=== PATIENT | female | born 1960 | race Caucasian/White ===

== ENCOUNTER 2020-07-24 13:11 | Emergency (ER) | payer MEDICARE, MEDICAID ==
[~2020-07-24] VITALS: Ht 162.6 cm; Wt 59.0 kg
[2020-07-24 13:37] LABS: BASOPHILS # (AUTO) 0.1 X10'3 (0-0.2); BASOPHILS % (AUTO) 0.7 % (0-1); EOSINOPHILS # (AUTO) 0.1 X10'3 (0-0.9); EOSINOPHILS % (AUTO) 1.3 % (0-6); HEMATOCRIT 35.9 % (35.0-45.0); HEMOGLOBIN 12.2 g/dl (12.0-16.0); LYMPHOCYTES % (AUTO) 27.5 % (21-51); MEAN CORPUSCULAR HEMOGLOBIN 32.1 PG (27.0-31.0); MEAN CORPUSCULAR HGB CONC 34.1 g/dL (33.0-36.5); MEAN CORPUSCULAR VOLUME 94.2 FL (78-98); MEAN PLATELET VOLUME 7.6 FL (7.4-10.4); MONOCYTES # (AUTO) 0.6 X10'3 (0-0.9); MONOCYTES % (AUTO) 8.2 % (2-12); NEUTROPHILS # (AUTO) 4.4 X10'3 (1.8-7.7); NEUTROPHILS % (AUTO) 62.3 % (42-75); PLATELET COUNT 285 X10'3 (140-440); RED BLOOD COUNT 3.81 X10'6 (4.20-5.60); RED CELL DISTRIBUTION WIDTH 12.9 % (11.5-14.5); WHITE BLOOD COUNT 7.1 X10'3 (4.5-11.0)
[2020-07-24 14:01] LABS: ALANINE AMINOTRANSFERASE 28 U/L (12-78); ALBUMIN 4.3 G/DL (3.4-5.0); ALBUMIN/GLOBULIN RATIO 1.4 (1.1-1.5); ALKALINE PHOSPHATASE 65 IU/L (46-116); ASPARTATE AMINO TRANSFERASE 18 U/L (10-37); BILIRUBIN,TOTAL 0.3 MG/DL (0.1-1.0); BLOOD UREA NITROGEN 10 MG/DL (7-18); BUN/CREATININE RATIO 9.5 (6.6-38.0); CALCIUM 9.5 MG/DL (8.5-10.1); CREATININE 1.05 MG/DL (0.40-0.90); GLUCOSE 121 MG/DL (70-104); TOTAL CARBON DIOXIDE 27.8 MMOL/L (24-32); TOTAL PROTEIN 7.4 G/DL (6.4-8.2); eGFR 54 ML/MIN
[2020-07-24 14:06] LABS: ANION GAP 8 (8-16); CHLORIDE 99 MMOL/L (99-107); POTASSIUM 4.1 MMOL/L (3.5-5.1); SODIUM 135 MMOL/L (135-145)
[2020-07-24 15:29] VITALS: BP 122/75
== END 2020-07-24 15:25 | disposition home or self-care (01) ==
LOC: ER 13:12
DX: I95.1 Orthostatic hypotension (principal); R42 Dizziness and giddiness; Z88.8 Allergy status to other drugs, medicaments and biological substances
CPT/HCPCS: 36415; 71045; 80053; 83880; 84484; 85025; 93005; 99285

== ENCOUNTER 2020-08-06 00:21 | Emergency (ER) | payer MEDICARE, MEDICAID ==
[~2020-08-06] VITALS: Ht 162.6 cm; Wt 59.1 kg
[2020-08-06] MEDS ORDERED: diphenhydrAMINE 25mg capsule PO ONE (00:50)
[2020-08-06] MEDS ORDERED: LORazepam 1 MG tablet PO ONE (00:50)
[2020-08-06 01:45] VITALS: BP 121/57
== END 2020-08-06 01:46 | disposition home or self-care (01) ==
LOC: ER 00:22
DX: G47.00 Insomnia, unspecified (principal); F41.9 Anxiety disorder, unspecified; F31.9 Bipolar disorder, unspecified; Z79.2 Long term (current) use of antibiotics
CPT/HCPCS: 99283; Q0163

== ENCOUNTER 2021-01-19 12:09 | Emergency (ER) | payer MEDICAID, MEDICARE ==
[~2021-01-19] VITALS: Ht 162.6 cm; Wt 55.6 kg
[2021-01-19 12:15] VITALS: BP 111/65
[2021-01-19] MEDS ORDERED: CLE150C PO (13:18)
[2021-01-19] MEDS ORDERED: IBUP-1984 PO (13:18)
== END 2021-01-19 13:33 | disposition home or self-care (01) ==
LOC: ER 12:09
DX: K04.7 Periapical abscess without sinus (principal); J45.909 Unspecified asthma, uncomplicated; F31.9 Bipolar disorder, unspecified; Z88.1 Allergy status to other antibiotic agents; Z79.899 Other long term (current) drug therapy
CPT/HCPCS: 99283

== ENCOUNTER 2021-01-23 12:52 | Emergency (ER) | payer MEDICARE ==
[~2021-01-23] VITALS: Ht 162.6 cm; Wt 58.2 kg
[~2021-01-23 12:52] MED LIST: CLE150C PO; IBUP-1984 PO
[2021-01-23 13:09] VITALS: BP 123/61
[2021-01-23] MEDS ORDERED: ALBU8HFA PO (13:21)
[2021-01-23] MEDS ORDERED: AZIT-72 PO (13:21)
[2021-01-23] MEDS ORDERED: BENZ-16 PO (13:22)
--- NOTE | 2021-01-23 13:57 | NUR ---
PT READY FOR DC, BUT STATES SHE CAN'T TAKE ZITHROMAX. PROVIDER NOTIFIED, AWAITING NEW RX FOR HOME
[2021-01-23] MEDS ORDERED: DOXY100C76 PO (14:01)
== END 2021-01-23 14:06 | disposition home or self-care (01) ==
LOC: ER 12:52
DX: J20.9 Acute bronchitis, unspecified (principal); F17.210 Nicotine dependence, cigarettes, uncomplicated; J45.909 Unspecified asthma, uncomplicated; F31.9 Bipolar disorder, unspecified; Z88.1 Allergy status to other antibiotic agents; Z79.899 Other long term (current) drug therapy
CPT/HCPCS: 99283

== ENCOUNTER 2021-01-29 09:59 | Emergency (ER) | payer MEDICARE ==
[~2021-01-29] VITALS: Ht 162.6 cm; Wt 56.8 kg
[~2021-01-29 09:59] MED LIST changes: +ALBU8HFA PO; +AZIT-72 PO; +BENZ-16 PO; -CLE150C PO; +DOXY100C76 PO
[2021-01-29 10:04] VITALS: BP 124/71
[2021-01-29] MEDS ORDERED: CLIN-142 PO (11:17)
== END 2021-01-29 11:49 | disposition home or self-care (01) ==
LOC: ER 09:59
DX: K05.10 Chronic gingivitis, plaque induced (principal); J45.909 Unspecified asthma, uncomplicated; F31.9 Bipolar disorder, unspecified; Z88.1 Allergy status to other antibiotic agents; Z79.899 Other long term (current) drug therapy
CPT/HCPCS: 99283

== ENCOUNTER 2021-02-04 09:49 | Emergency (ER) | payer MEDICARE, MEDICAID ==
[~2021-02-04] VITALS: Ht 162.6 cm; Wt 57.7 kg
[~2021-02-04 09:49] MED LIST changes: -AZIT-72 PO; -BENZ-16 PO; +CLIN-142 PO; -DOXY100C76 PO
[2021-02-04 09:57] VITALS: BP 117/70
[2021-02-04] MEDS ORDERED: PENI500T2 PO (11:50)
[2021-02-04] MEDS ORDERED: CHLO473M3 PO (11:50)
== END 2021-02-04 12:01 | disposition home or self-care (01) ==
LOC: ER 09:51
DX: K08.89 Other specified disorders of teeth and supporting structures (principal); J45.909 Unspecified asthma, uncomplicated; F31.9 Bipolar disorder, unspecified; Z88.1 Allergy status to other antibiotic agents; Z79.899 Other long term (current) drug therapy
CPT/HCPCS: 99283

== ENCOUNTER 2021-02-06 07:42 | Emergency (ER) | payer MEDICARE, MEDICAID ==
[~2021-02-06] VITALS: Ht 162.6 cm; Wt 57.7 kg
[~2021-02-06 07:42] MED LIST changes: +CHLO473M3 PO; +PENI500T2 PO
[2021-02-06 07:45] VITALS: BP 127/70
[2021-02-06 09:32] LABS: BASOPHILS % (AUTO) 0.8 % (0-1); EOSINOPHILS # (AUTO) 0.1 X10'3 (0-0.9); EOSINOPHILS % (AUTO) 1.7 % (0-6); HEMATOCRIT 38.9 % (35.0-45.0); HEMOGLOBIN 12.9 g/dl (12.0-16.0); LYMPHOCYTES # (AUTO) 1.9 X10'3 (1.1-4.8); LYMPHOCYTES % (AUTO) 30.8 % (21-51); MEAN CORPUSCULAR HEMOGLOBIN 32.2 PG (27.0-31.0); MEAN CORPUSCULAR HGB CONC 33.3 g/dL (33.0-36.5); MEAN CORPUSCULAR VOLUME 96.9 FL (78-98); MEAN PLATELET VOLUME 7.7 FL (7.4-10.4); MONOCYTES # (AUTO) 0.7 X10'3 (0-0.9); MONOCYTES % (AUTO) 11.9 % (2-12); NEUTROPHILS # (AUTO) 3.4 X10'3 (1.8-7.7); NEUTROPHILS % (AUTO) 54.8 % (42-75); PLATELET COUNT 260 X10'3 (140-440); RED BLOOD COUNT 4.02 X10'6 (4.20-5.60); RED CELL DISTRIBUTION WIDTH 13.4 % (11.5-14.5); WHITE BLOOD COUNT 6.1 X10'3 (4.5-11.0)
[2021-02-06 09:40] LABS: ALANINE AMINOTRANSFERASE 40 U/L (12-78); ALBUMIN/GLOBULIN RATIO 1.3 (1.1-1.5); ALKALINE PHOSPHATASE 78 IU/L (46-116); ANION GAP 11 (8-16); ASPARTATE AMINO TRANSFERASE 28 U/L (10-37); BILIRUBIN,TOTAL 0.2 MG/DL (0.1-1.0); BLOOD UREA NITROGEN 9 MG/DL (7-18); BUN/CREATININE RATIO 10.2 (6.6-38.0); CALCIUM 8.9 MG/DL (8.5-10.1); CHLORIDE 104 MMOL/L (99-107); CREATININE 0.88 MG/DL (0.40-0.90); GLUCOSE 95 MG/DL (70-104); POTASSIUM 3.6 MMOL/L (3.5-5.1); SODIUM 140 MMOL/L (135-145); TOTAL CARBON DIOXIDE 24.7 MMOL/L (24-32); TOTAL PROTEIN 7.2 G/DL (6.4-8.2); eGFR 66 ML/MIN
== END 2021-02-06 11:03 | disposition home or self-care (01) ==
LOC: ER 07:42
DX: R44.0 Auditory hallucinations (principal); R51.9 Headache, unspecified; J45.909 Unspecified asthma, uncomplicated; F31.9 Bipolar disorder, unspecified; F17.200 Nicotine dependence, unspecified, uncomplicated; Z88.1 Allergy status to other antibiotic agents; Z79.2 Long term (current) use of antibiotics; Z79.899 Other long term (current) drug therapy
CPT/HCPCS: 36415; 70450; 80053; 84443; 85025; 99284

== ENCOUNTER 2022-05-17 23:48 | Emergency (ER) | payer MEDICARE, MEDICAID ==
[~2022-05-17] VITALS: Ht 162.6 cm; Wt 59.1 kg
[~2022-05-17 23:48] MED LIST changes: -ALBU8HFA PO; -CLIN-142 PO; -IBUP-1984 PO; -PENI500T2 PO
[2022-05-18 00:05] VITALS: BP 112/67
== END 2022-05-18 05:49 | disposition left against medical advice (07) ==
LOC: ER 23:49
DX: R44.0 Auditory hallucinations (principal); Z53.21 Procedure and treatment not carried out due to patient leaving prior to being seen by health care provider

== ENCOUNTER 2022-09-14 07:07 | Emergency (ER) | payer MEDICARE, MEDICAID ==
[~2022-09-14] VITALS: Ht 172.7 cm; Wt 65.0 kg
[2022-09-14 07:12] VITALS: BP 137/72
--- NOTE | 2022-09-14 07:30 | NUR ---
patient refused covid and flu swabs and chest xray. she states all 3 tests were negative yesterday and she was dx with bronchitis. states she took a dose on motrin this morning without relief and she wants something elese to make her feel better.
--- NOTE | 2022-09-14 08:13 | NUR ---
patient left without notifying staff.
== END 2022-09-14 08:25 | disposition left against medical advice (07) ==
LOC: ER 07:08
DX: R05.9 Cough, unspecified (principal); Z53.21 Procedure and treatment not carried out due to patient leaving prior to being seen by health care provider